=== PATIENT | male | born 1955 | race Caucasian/White ===

== ENCOUNTER 2018-07-19 23:47 | Emergency (ER) | payer SELFPAY ==
[2018-07-19 23:57] VITALS: BMI 26.9
--- NOTE | 2018-07-19 23:58 | PDOC ---
Attending Attestation - Resident Resident Name: Lon Winters - ED Attending Attestation I have performed the following: I have examined & evaluated the patient, The case was reviewed & discussed with the resident, I agree w/resident's findings & plan, Exceptions are as noted - HPI HPI: 07/20/18 00:24 pt states he has not had a bowel movement since his orthopedic surgery on Friday -no fever,no chills,no vomiting -benign abd exam imp: constipation recommend miralax <Sheila Isbell - Last Filed: 07/20/18 00:24> - HPI HPI: 63 year old male with past medical history of hypertension, diabetes, s/p recent hip arthroplasty 5 days ago who presents to the ED with complaints of 4 days of constipation. He reports being on bed rest after the procedure for 3 days and was prescribed stool softener post operatively without relief. He also reports trying milk of magnesia 2 hour prior to arrival without relief. Denies fever, chills, nausea, vomiting, diarrhea, cough, SOB, chest pain or urinary complaints. - Physicial Exam PE: 07/20/18 00:41 GENERAL: Well developed, well nourished. Awake and alert. No acute distress. CARDIOVASCULAR: Regular rate and rhythm. No murmurs, rubs, or gallops. PULMONARY: No evidence of respiratory distress. Lungs clear to auscultation bilaterally. ABDOMINAL: Soft. Non-tender. Non-distended. No rebound or guarding. No organomegaly. Normoactive bowel sounds. EXTREMITIES: No cyanosis. No clubbing. No edema. No calf tenderness. SKIN: Warm and dry. Normal capillary refill. No rashes. No jaundice. NEUROLOGICAL: Alert, awake, appropriate. Cranial nerves 2-12 intact. - Medical Decision Making 07/20/18 00:42 Documentation prepared by Silvana Carlson, acting as medical grade shoemaker for Sheila Isbell MD. <Silvana Carlson - Last Filed: 07/20/18 00:42>
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
[2018-07-20] MEDS ORDERED: POLYETHYLENE GLYCOL 3350 119 GM BTL PO ONE (00:39)
[2018-07-20 00:48] VITALS: BP 133/86; PULSE 90; TEMP 98.1
== END 2018-07-20 00:59 | disposition home or self-care (01) ==
LOC: SUPCPDRO 23:47 → JER 23:47
DX: K59.00 Constipation, unspecified (principal); I10 Essential (primary) hypertension; E11.9 Type 2 diabetes mellitus without complications; Z79.84 Long term (current) use of oral hypoglycemic drugs; Z98.890 Other specified postprocedural states; Z87.891 Personal history of nicotine dependence
CPT/HCPCS: 99282-25

== ENCOUNTER 2018-07-20 22:27 | Emergency (ER) | payer OTHER ==
[2018-07-20 22:46] VITALS: BP 128/81; PULSE 99; TEMP 98.4; BMI 28.9
--- NOTE | 2018-07-20 23:06 | PDOC ---
Attending Attestation - HPI HPI: 07/20/18 23:37 The patient is a 63 year old male, with a significant past medical history of hypertension, diabetes, s/p recent hip arthroplasty 6 days ago, who presents to the emergency department with, constipation and diffuse abdominal pain radiating to his back. He denies any recent fevers, chills, headache or dizziness. He denies any recent nausea or vomiting. He denies any recent chest pain or shortness of breath. He denies any recent dysuria, frequency, urgency or hematuria. Allergies: NKDA Primary Care Physician: Dr. Saenz - Physicial Exam PE: 07/20/18 23:38 Agree with resident exam. <Ryan Razo - Last Filed: 07/20/18 23:37> - Resident Resident Name: Steffi RuizAmanda - ED Attending Attestation I have performed the following: I have examined & evaluated the patient, The case was reviewed & discussed with the resident, I agree w/resident's findings & plan - Medical Decision Making 07/21/18 02:25 63-year-old male with abdominal and back pain with some urinary retention seen recently for constipation and given MiraLAX CTA of the abdomen was performed to rule out aortic pathology which showed fecal impaction with no acute aortic abnormalities There are additional findings related to esophagitis which will be related to the patient with recommended GI follow-up Patient had a large bowel movement in the emergency department after morphine and IV fluids with complete relief stating he feels much better and would like to go home <Kyra Wagoner - Last Filed: 07/21/18 02:26> Attestations - Attestations 07/20/18 23:38 Documentation prepared by Ryan Razo, acting as medical scientific officer for Kyra Wagoner DO. <Ryan Razo - Last Filed: 07/20/18 23:37>
--- NOTE | 2018-07-20 23:14 | PDOC ---
History of Present Illness - General Chief Complaint: Urinary Problem Stated Complaint: UNABLE TO URINATE,CONSTIPATION Time Seen by Provider: 07/20/18 22:53 - History of Present Illness Initial Comments: 63yo M with PMH of DM, HTN, recent L. hip arthroplasty presenting with constipation. Patient was in this ED yesterday with the same complaint, but now his abdominal pain has worsened. He has taken milk of magnesia, miralax, ducolax , and a suppository at home but has not had a bowel movement since yesterday. Patient also reports that he had not been able to urinate from 12 noon today until he was in the ED, possibly because he was limited by the pain from his constipation. He also has back pain. Patient has passed flatus today. Denies chest pain or shortness of breath. He feels his abdomen is distended. Patient had been taking oxycodone during the post-surgical period but was instructed to stop taking this medicine and has not done so for about one day. Denies fevers, chills, nausea, vomiting, or lessened appetite. Orthopedic surgeon: Dr. Francisco Javier Adrian Past History - Past Medical History Allergies/Adverse Reactions: Allergies Allergy/AdvReac Type Severity Reaction Status Date / Time No Known Allergies Allergy Verified 07/20/18 22:43 Home Medications: Ambulatory Orders Amlodipine Besylate 10 mg PO DAILY 07/20/18 Metformin HCl [Glucophage] 500 mg PO BID 07/20/18 Esomeprazole Magnesium [Nexium 24Hr] 20 mg PO DAILY 07/21/18 Oxycodone HCl/Acetaminophen [Percocet 5-325 mg Tablet] 1 tab PO Q6H 07/21/18 COPD: No Diabetes: Yes HTN: Yes - Immunization History Td Vaccination: Yes TDAP Vaccination: Yes Immunization Up to Date: Yes - Suicide/Smoking/Psychosocial Hx Smoking History: Former smoker Have you smoked in the past 12 months: No If you are a former smoker, when did you quit?: 12 years ago Information on smoking cessation initiated: No Hx Alcohol Use: No Drug/Substance Use Hx: No Review of Systems - Review of Systems Comments:: Constitutional: no fever, no chills HEENT: no throat pain, no dysphagia Cardiovascular: no chest pain, no palpitations Respiratory: no cough, no shortness of breath Gastrointestinal: +abdominal pain, no nausea Genitourinary: no frequency, +inability to urinate Musculoskeletal: no myalgia, no arthralgia Skin: no rash, no itching Neurologic: no headache, no dizziness *Physical Exam - Vital Signs Last Vital Signs Temp Pulse Resp BP Pulse Ox 98.4 F 99 H 20 128/81 100 07/20/18 22:44 07/20/18 22:44 07/20/18 22:44 07/20/18 22:44 07/20/18 22:44 - Physical Exam Comments: General: Awake, alert, and fully oriented, writhing in bed Head: No signs of trauma Eyes: EOMI, sclera anicteric ENT: Moist mucus membranes Neck: Normal ROM, supple Lungs: Lungs clear, Normal breath sounds Cardio: Regular rhythm, S1 and S2 present Abdomen: Distended. Tender to palpation in the lower abdominal area. No pulsatile mass appreciated. No guarding, no rebound, no masses Extremities: Normal range of motion, Femoral and distal pulses present SKIN: Warm, Dry, normal turgor Neurologic: Cranial nerves II through XII grossly intact. Normal speech Moderate Sedation - Procedure Monitoring Vital Signs: Procedure Monitoring Vital Signs Temperature 98.4 F 07/20/18 22:44 Pulse Rate 99 H 07/20/18 22:44 Respiratory Rate 20 07/20/18 22:44 Blood Pressure 128/81 07/20/18 22:44 O2 Sat by Pulse Oximetry (%) 100 07/20/18 22:44 ED Treatment Course - LABORATORY CBC & Chemistry Diagram: 07/20/18 23:45 07/20/18 23:45 Medical Decision Making - Medical Decision Making 63yo M with PMH of DM, HTN, recent L. hip arthroplasty presenting with constipation. DDX including but not limited to constipation, small bowel obstruction, UTI, AAA , cauda equina syndrome CBC, CMP, Lipase, Lactate, Coags CT abd/pelvis with contrast 1L NS, 4mg Morphine, 4mg Zofran 07/21/18 00:31 No anemia or leukocytosis Electrolytes WNL UA negative for infection, 1+ blood noted Lactate=2.6 07/21/18 01:[address] report Patient laying in stretcher, more comfortable after receiving morphine 07/21/18 01:58 Patient with bowel movement while in the ED 07/21/18 02:01 FINDINGS: Mild basilar atelectasis. Small hiatal hernia. Mild nonspecific asymmetric 1.3 cm lower esophageal wall thickening may be due to acute esophagitis or chronic reflux esophagitis and Gauthier's esophagitis cannot be excluded on axial image 22. Liver gallbladder pancreas spleen adrenal glands appear unremarkable. Benign-appearing renal cortical cysts. No nephrolithiasis or hydronephrosis. No aortic aneurysm or dissection. Mild arteriosclerosis of the abdominal and pelvic arterial vasculature. Lack of oral contrast limits this exam. Nonoral contrast evaluation stomach small bowel and appendix appear unremarkable. No appendicitis. Constipation with rectal impaction. Moderate 15 x 10 x 7 bladder distention may be due to partial bladder outlet obstruction associated with prostatomegaly. Nodular nonspecific prostatomegaly extends into the inferior bladder wall. No free air. No free fluid. No abscess. Moderate degenerative disc disease. Moderate degenerative joint disease of the lower lumbar facets. IMPRESSION: Small hiatal hernia with mild nonspecific asymmetric lower esophageal wall thickening may be due to acute esophagitis or chronic reflux esophagitis and Gauthier's esophagitis cannot be excluded. Constipation with rectal impaction. Moderate bladder distention may be due to partial bladder outlet obstruction associated with prostatomegaly. Nodular nonspecific prostatomegaly extends into the inferior bladder wall. If clinically indicated recommend correlation with the CREW BOSS level. This CT exam was performed using one or more of the following dose reduction techniques: automated exposure control, adjustment of the mA and/or kV according to patient size, use of iterative reconstruction technique. Plan to refer to GI for evaluation of possible Gauthier's esophagitis Explained this to the patient who is amenable to follow-up. Patient reports feeling, "good!" Plan to discharge 07/21/18 02:20 *DC/Admit/Observation/Transfer Diagnosis at time of Disposition: Constipation Qualifiers: Constipation type: other constipation type Qualified Code(s): K59.09 - Other constipation - Discharge Dispostion Disposition: HOME Condition at time of disposition: Stable - Referrals Referrals: Pedro Gardner MD [Primary Care Provider] - Gurwinder Hunter MD [Staff Physician] - - Patient Instructions Printed Discharge Instructions: DI for Constipation Additional Instructions: You came into the ED for constipation. An imaging study was negative for acute pathology. It incidentally showed that thickening of your esophagus which should be followed up on. We have referred you to a GI specialist. Call and make an appointment. Your workup is not complete until you do so. Follow-up with your primary care doctor this week to discuss this ED visit and to further evaluate your symptoms. Drink plenty of water and eat more fruits and vegetables. Immediate medical attention is required if you have: you develop worsening pain , high fevers, persistent nausea, vomiting, or any new or concerning symptoms. If you think you are having an emergency, call for emergency medical services or present to the emergency department right away. === Entraste en el servicio de urgencias por estreimiento. Un estudio de imagen fue negativo para la patologa aguda. Incidentalmente, mostr un engrosamiento de bunch esfago que debe ser seguido. Te hemos referido a un especialista en IG. Llame y joaquin darrel keren. Bunch preparacin no est completa hasta que lo joaquin. Joaquin un seguimiento con bunch mdico de atencin primaria esta semana para hablar sobre esta visita al ED y para evaluar ms a fondo pennie sntomas. Cindy daryl agua y come ms frutas y verduras. Se requiere atencin mdica inmediata si: tiene un dolor que empeora, fiebre ry, nuseas persistentes, vmitos o cualquier sntoma nuevo o relacionado con ellos. Si ashlee que tiene darrel emergencia, llame para solicitar servicios mdicos de emergencia o presente al departamento de emergencias de inmediato. - Post Discharge Activity
[2018-07-20] MEDS ORDERED: SODIUM CHLORIDE 1,000 ML IV STA (23:33)
[2018-07-20] MEDS ORDERED: morphine CARPU-JECT 4 MG/1 ML DISP.SYRIN IVPUSH ONE (23:33)
[2018-07-20] MEDS ORDERED: ONDANSETRON 4 MG/2 ML VIAL ONE (23:39)
[2018-07-20] MEDS ORDERED: morphine SULFATE 4 MG/ML VIAL ONE (23:39)
[2018-07-20] MEDS ORDERED: ONDANSETRON 4 MG/2 ML VIAL IVPUSH ONE (23:39)
[2018-07-20 23:53] LABS: URINE APPEARANCE CLEAR; URINE BILIRUBIN NEGATIVE (<2.0 mg/dL); URINE COLOR LTYELLOW; URINE GLUCOSE (UA) NEGATIVE (NEGATIVE); URINE KETONE NEGATIVE (NEGATIVE); URINE LEUK ESTERASE NEGATIVE (NEGATIVE); URINE NITRITE NEGATIVE (NEGATIVE); URINE PROTEIN NEGATIVE (NEGATIVE); URINE UROBILINOGEN NEGATIVE mg/dL (0.2-1.0)
[2018-07-20 23:56] LABS: URINE HYALINE CAST 1 /lpf
[2018-07-21 00:18] LABS: BASO % 0.1 % (0-2.0); EOS % 0.5 % (0-4.5); HEMATOCRIT 41.8 % (35.4-49); HEMOGLOBIN 14.6 GM/dL (11.7-16.9); LYMPH % 19.6 % (8-40); MCH 30.8 pg (25.7-33.7); MCHC 34.9 g/dl (32.0-35.9); MEAN CELL VOLUME 88.3 fl (80-96); MEAN PLT VOLUME 7.5 fl (7.5-11.1); MONO % 3.7 % (3.8-10.2); NEUT % 76.1 % (42.8-82.8); PLATELET COUNT 311 K/MM3 (134-434); RBC 4.74 M/mm3 (4.00-5.60); RDW 13.2 % (11.9-15.9); WHITE BLOOD COUNT 9.5 K/mm3 (4.0-10.0)
[2018-07-21 00:36] LABS: INR 1.06 (0.83-1.09); PROTHROMBIN TIME (PATIENT) 12.5 SEC (9.7-13.0)
[2018-07-21 00:39] LABS: ACTIVATED PTT 25.5 SECONDS (25.2-36.5)
[2018-07-21 00:46] LABS: ALBUMIN 4.1 g/dl (3.4-5.0); ALK PHOS 112 U/L (45-117); ANION GAP 6 MMOL/L (8-16); BILIRUBIN,TOTAL 0.5 mg/dL (0.2-1); BLOOD UREA NITROGEN 13 mg/dL (7-18); CALCIUM 9.3 mg/dL (8.5-10.1); CHLORIDE 100 mmol/L (98-107); CO2 30 mmol/L (21-32); GLUCOSE,RANDOM 126 mg/dL (74-106); POTASSIUM 4.6 mmol/L (3.5-5.1); SGOT/AST 18 U/L (15-37); SGPT/ALT 42 U/L (13-61); SODIUM 137 mmol/L (136-145); TOT PROT 7.3 g/dl (6.4-8.2)
== END 2018-07-21 02:57 | disposition home or self-care (01) ==
LOC: JER 22:27
PROC: 3E0337Z Introduction of Electrolytic and Water Balance Substance into Peripheral Vein, Percutaneous Approach (ICD-10-PCS; principal; 2018-07-20)
PROC: 3E033GC Introduction of Other Therapeutic Substance into Peripheral Vein, Percutaneous Approach (ICD-10-PCS; 2018-07-20)
PROC: 3E033NZ Introduction of Analgesics, Hypnotics, Sedatives into Peripheral Vein, Percutaneous Approach (ICD-10-PCS; 2018-07-20)
DX: K59.00 Constipation, unspecified (principal); I10 Essential (primary) hypertension; E11.9 Type 2 diabetes mellitus without complications; Z79.84 Long term (current) use of oral hypoglycemic drugs; Z98.890 Other specified postprocedural states
CPT/HCPCS: 36415; 74174-TC; 80053; 81003; 81015; 83605; 83690; 85025; 85610; 85730; 87086; 96361; 96374; 96375; 99282-25; J7030

== ENCOUNTER 2022-01-11 10:18 | Emergency (ER) | payer OTHER ==
[2022-01-11 11:02] VITALS: TEMP 97.9; BMI 31.7
[2022-01-11 11:42] LABS: BASO % 0.8 % (0-2.0); EOS % 1.6 % (0-4.5); HEMATOCRIT 37.4 % (35.4-49); HEMOGLOBIN 12.9 GM/dL (11.7-16.9); LYMPH % 25.6 % (8-40); MCH 29.6 pg (25.7-33.7); MCHC 34.4 g/dl (32.0-35.9); MEAN CELL VOLUME 85.9 fl (80-96); MEAN PLT VOLUME 6.9 fl (7.5-11.1); MONO % 6.5 % (3.8-10.2); NEUT % 65.5 % (42.8-82.8); PLATELET COUNT 304 10^3/uL (134-434); RBC 4.35 M/mm3 (4.00-5.60); RDW 13.6 % (11.9-15.9); WHITE BLOOD COUNT 5.4 K/mm3 (4.0-10.0)
[2022-01-11 11:59] LABS: CALCIUM 9.1 mg/dL (8.5-10.1)
[2022-01-11 12:00] LABS: ALBUMIN 3.7 g/dl (3.4-5.0)
[2022-01-11 12:03] LABS: CREATININE 1.4 mg/dL (0.55-1.3)
[2022-01-11 12:04] LABS: BILIRUBIN,TOTAL 0.4 mg/dL (0.2-1)
[2022-01-11 12:05] LABS: TOT PROT 7.5 g/dl (6.4-8.2)
[2022-01-11 13:07] VITALS: BP 123/86; PULSE 87; RESP 16
== END 2022-01-11 13:07 | disposition home or self-care (01) ==
LOC: JER 10:18
DX: R42 Dizziness and giddiness (principal)
CPT/HCPCS: 36415; 80053; 82962; 84484; 85025; 93005; 93010; 99284-25